=== PATIENT | female | born 1940 | race Hispanic/Latino ===

== ENCOUNTER 2018-02-02 10:18 | Outpatient (CLI) | payer MEDICARE ==
--- NOTE | 2018-02-12 18:01 | Vascular Lab Report ---
MESENTERIC ARTERIAL DUPLEX Reason for exam: Mesenteric artery insufficiency. Abdominal pain Comments: The aorta is patent. Flow velocities are within normal limits. Minimal to moderate atherosclerotic change is identified. No aneurysmal dilatation is noted. The celiac artery is patent. Flow velocities are elevated. No evidence of obstruction is identified. The superior mesenteric artery is patent. Flow velocities are normal. No evidence of obstruction is identified. A caloric challenge was not done. Impression: celiac artery stenosis. Technically difficult study due to bowel gas. Consider another imaging modality.
== END 2018-02-02 10:19 | disposition home or self-care (01) ==
LOC: VAS 10:18
PROVIDERS: ATTEND Surgery Vascular Surgery
DX: I77.4 Celiac artery compression syndrome (principal); Z91.018 Allergy to other foods
CPT/HCPCS: 93979